=== PATIENT | female | born 1975 | race African-American/Black ===

== ENCOUNTER 2016-11-03 08:46 | Emergency (ER) | payer OTHER ==
--- NOTE | ~2016-11-03 | CT52 ---
[facility] A Service [facility] RADIOLOGY TEXT RESULTS PATIENT: AL MAYES LOCATION: SED : 71 UNIT #: [id number] AGE: [address]: Zack Castillo MD SEX: F ORDER DR: [id number] [place] [id number] E MR#: [id number] Acc #: [id number] NAME: AL MAYES : 1975 SEX: F STUDY DATE/TIME: 11/03/2016 9:43 UNIT: SED ROOM: STUDY DESCRIPTION: CT Cervical Spine Wo Cont Attending Physician: Zack Castillo M.D. Ordering Physician: Zack Castillo M.D. MEDICAL IMAGING REPORT This report is preliminary unless electronic signature is present. EXAM Cervical spine CT 11/03 INDICATIONS Right side weakness and arm pain for [id number] months radiating into the hand. TECHNIQUE Axial images were obtained through the cervical spine without contrast. Multiplanar reformats were obtained. This CT exam was performed with one or more of the following radiation dose reduction techniques: automatic exposure control, adjustment of mA and/or kV according to patient size, and iterative reconstruction. COMPARISON STUDIES No comparison. FINDINGS No fracture or subluxation is seen. There are mild multilevel degenerative disc bulges. However, there is no significant central canal or foraminal narrowing on the exam. No cause for a right side radiculopathy is identified. Consider follow up with outpatient MRI. IMPRESSION No fracture or subluxation. There is mild degenerative disc bulging but no cause for a right side radiculopathy is seen. Consider outpatient evaluation with MRI. Dictated by... Joe Valverde Jr., M.D. [facility] A Service [facility] RADIOLOGY TEXT RESULTS PATIENT: AL MAYES LOCATION: SED : 71 UNIT #: [id number] AGE: [address]: Zack Castillo MD SEX: F ORDER DR: THIS IS AN ELECTRONICALLY VERIFIED REPORT Joe Valverde Jr., M.D. at 11/03/2016 4:39 PM KALEB/nathalie TD: 11/03/2016 16:27 JOB #: [id number] MEDICAL IMAGING REPORT Page 1 of 1
[~2016-11-03 08:46] MED LIST: AMOXIL500 M1 PO; CLARITIN10 MG/TAB PO; FLEXERIL10 M1 PO; FLEXERIL10 MG PO; IBUPROFEN PO; KETOPROFEN PO; LISINOPRIL10 MG PO; MEDROL DOSEPAK4 MG PO; MEDROL PO; NAPROSYN125 MG/5 M PO; ORUDIS75 M1 PO
[2016-11-03] MEDS ORDERED: HCTZ (08:56)
[2016-11-03] MEDS ORDERED: IRON325 MG (08:56)
== END 2016-11-03 10:55 | disposition home or self-care (01) ==
LOC: SED 08:46
DX: M54.12 Radiculopathy, cervical region (principal); I10 Essential (primary) hypertension; E78.5 Hyperlipidemia, unspecified; F17.200 Nicotine dependence, unspecified, uncomplicated; Z79.899 Other long term (current) drug therapy
CPT/HCPCS: 72125; 99283